=== PATIENT | male | born 1970 | race Caucasian/White ===

== ENCOUNTER → 2016-05-08 | Outpatient (CLI) | payer BC ==
[2016-05-08 17:52] LABS: FERRITIN 254.9 ng/ml (8.0-388.0); MAGNESIUM 2.2 mg/dl (1.8-2.4)
== END | disposition home or self-care (01) ==
LOC: C.LABBFT 14:16
PROVIDERS: ATTEND Psychiatry & Neurology Neurology
DX: R25.2 Cramp and spasm (principal); R25.3 Fasciculation; M62.81 Muscle weakness (generalized)